=== PATIENT | female | born 1950 | race Caucasian/White ===

== ENCOUNTER 2019-02-27 22:38 | Outpatient (CLI) | payer MEDICARE | END 2019-02-27 22:39 | disposition short-term general hospital (02) | LOC: EMS 22:38 | PROVIDERS: ATTEND Surgery | DX: R55 Syncope and collapse (principal); H53.2 Diplopia; R26.81 Unsteadiness on feet; S09.90XA Unspecified injury of head, initial encounter; W19.XXXA Unspecified fall, initial encounter | CPT/HCPCS: A0425; A0427 ==